=== PATIENT | female | born 1990 | race Caucasian/White ===

== ENCOUNTER 2016-10-08 12:40 | Emergency (ER) | payer BC, OTHER | END 2016-10-08 14:37 | disposition home or self-care (01) | LOC: ER 12:40 | DX: R11.0 Nausea (principal); Z32.02 Encounter for pregnancy test, result negative; F17.210 Nicotine dependence, cigarettes, uncomplicated; N92.6 Irregular menstruation, unspecified; E66.9 Obesity, unspecified | CPT/HCPCS: 81025; 99283 ==